=== PATIENT | male | born 1940 | race Caucasian/White ===

== ENCOUNTER 2017-10-16 23:04 | Outpatient (REF) | payer MEDICARE, MEDICAID, SELFPAY ==
[2017-10-16 23:25] LABS: Bilirubin Negative (Negative); Blood Small (Negative); Clarity Sl Cloudy; Glucose 500 mg/dL (Negative); Ketones Negative (Negative); Leukocyte Esterase Large (Negative); Nitrite Negative (Negative); Specific Gravity 1.015 (1.005-1.025); Urobilinogen 0.2 EU/dL (Up TO 0.2)
[2017-10-16 23:35] LABS: Epithelial Cells Negative HPF (Negative); RBC 20-50 (0-2); WBC >50 HPF (0-5)
[2017-10-16 23:36] LABS: Bacteria Many HPF (Negative); C & S Indicated? C&S Done As Ordered; Casts Negative LPF (Negative); Crystals Negative HPF (Negative); Mucus Negative (Negative)
== END 2017-10-16 23:05 ==
LOC: LBN 23:04
PROVIDERS: PCP Family Medicine; Visit Provider Family Medicine
DX: N39.0 Urinary tract infection, site not specified (principal)
CPT/HCPCS: 87077; 81003; 81015; 87086; 87186

== ENCOUNTER 2017-12-28 12:28 | Emergency (ER) | payer MEDICARE, MEDICAID, SELFPAY ==
[2017-12-28 12:28] VITALS: BP 110/62; PULSE 98; RESP 16; TEMP 36.9; O2SAT 98
--- NOTE | 2017-12-28 12:41 | W.ED.GENAD ---
Discharge Plan Disposition Patient Disposition: SNF (LEVEL 1) [facility] Condition: Stable Discharge Details Chief Complaint: Orthopedic Clinical Impression: Closed fracture of right hip, Lumbar contusion Primary Care Provider: Jaelyn Chavez ED Provider: Anant Desai Home Meds and New Rx's Prescriptions: Continue lorazepam 2 MG/ML solution 0.5 mg IVP Q2H PRN PRNRF: 0 morphine 10 MG/5 ML solution 10 mg PO Q3H PRN PRNRF: 0 MORPHine 4 MG/ML Vial 2 mg IVP Q2H PRN PRNRF: 0 lorazepam [Lorazepam Intensol] 2 MG/ML concentrate 0.5 mg PO Q4H PRNQty: 1 RF: 0 Discharge Instructions Instructions: Hip Fracture (ED) Discharge Data Discharge Physician: Anant Desai Medical Decision Making 77 yo male with hx of dementia and 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 He apparently had a fall after he tripped over his mary last night at rehab, no loc per report. He is at his baseline mental status amaya and is c/o of right hip and lower back pain. No stepoffs or signs of trauma, intact distal sensation and pulses. i am able to range his right hip though he has pain in the lower back and right hip with this. Will xray to eval for fx/dislocation lumbar spine films shows old compression fx's, nothing acute. Has a right nondisplaced hip fx. I spoke with pt's hospice provider Dr. clarke. The patient's pain when not moving is well controlled, he has fallen asleep without pain meds here and states his pain is fine without trying to stand. Given this and being on hospice Dr. clarke asked the pt to be transferred back to rehab and will be Differential Diagnosis contusion, sprain, strain, fx Imaging Data Radiologic Study: Attestation: I personally reviewed and interpreted this imaging study as follows: Imaging: X-Ray Radiologist's impression: nondisplaced right hip fx Radiologic Study #2: Attestation: I personally reviewed and interpreted this imaging study as follows: Imaging: X-Ray Radiologist's impression: old compresion fractures, no acute findings HPI General Mode of arrival: EMS. Date/Time Provider Initiated Documentation: 12/28/17 12:34. Limitations to Documentation: other (dementia). Information obtained by: patient. History of Present Illness 77 year old M presents to the emergency department with the chief complaint of right hip and lower back pain, described as moderate, with intensity rated at 5. Quality is described as sharp, and is localized to the right and lower extremity. Patient started experiencing this day(s) (1) and it has been constant. No relieving factors improve symptom(s), No exacerbating factors reported . Patient did receive the following treatments prior to arrival, none Related Data Home Medications Medication Instructions Recorded Confirmed MORPHine 2 mg IVP Q2H PRN PRN vial 09/27/17 lorazepam 0.5 mg IVP Q2H PRN PRN vial 09/27/17 lorazepam [Lorazepam Intensol] 0.5 mg PO Q4H PRN #1 vial 09/27/17 morphine 10 mg PO Q3H PRN PRN cup 09/27/17 Previous Rx's Medication Instructions Recorded MORPHine 2 mg IVP Q2H PRN PRN vial 09/27/17 lorazepam 0.5 mg IVP Q2H PRN PRN vial 09/27/17 lorazepam [Lorazepam Intensol] 0.5 mg PO Q4H PRN #1 vial 09/27/17 morphine 10 mg PO Q3H PRN PRN cup 09/27/17 Allergies Allergy/AdvReac Type Severity Reaction Status Date / Time amlodipine besylate Allergy Unknown Unverified 12/28/17 12:35 [From [facility]] General Stated Complaint: Orthopedic DAVID: 3 Review of Systems Review of Systems All systems reviewed & are unremarkable except as noted in HPI and below Constitutional Denies chills and Denies fever(s) Cardiovascular Denies chest pain and Denies dyspnea Respiratory Denies dyspnea Gastrointestinal Denies vomiting PFSH Family History Mother No problems noted. Father No problems noted. 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) Exam Const General: no acute distress Orientation: alert [facility] Head: normal to inspection Ears: external ears normal General nose exam: external nose normal Mouth: moist mucous membranes Eyes General: appearance normal, both eyes and all related structures Neck Neck: normal visual inspection Resp Effort & Inspection: normal respiratory effort and able to speak in complete sentences Cardio Rate: regular rate Skin General skin exam: no rashes or lesions noted Neuro General: alert and oriented Patient Orientation: Person Extrem General: normal to inspection Psych Mental Status: mental status grossly normal Course Vital Signs Temperature 36.9 C 12/28/17 12:28 Pulse 98 H 12/28/17 12:28 Respiratory Rate 16 12/28/17 12:28 Blood Pressure 110/62 12/28/17 12:28 Pulse Oximetry 98 12/28/17 12:28 Temperature 36.9 C 12/28/17 12:28 Temperature Source Skin 12/28/17 12:28 Pulse 98 H 12/28/17 12:28 Respiratory Rate 16 12/28/17 12:28 Blood Pressure 110/62 12/28/17 12:28 Blood Pressure Position Supine 12/28/17 12:28 Pulse Oximetry 98 12/28/17 12:28 Oxygen Delivery Method Room Air 12/28/17 12:28 Oxygen Flow Rate 0 12/28/17 12:28 Comment 12/28/17 12:28
--- NOTE | 2017-12-28 12:46 | ED.GENADUL_ITS ---
Discharge Plan Disposition Patient Disposition: SNF (LEVEL 1) [facility] Condition: Stable Discharge Details Chief Complaint: Orthopedic Clinical Impression: Closed fracture of right hip, Lumbar contusion Primary Care Provider: Jaelyn Chavez ED Provider: Anant Desai Home Meds and New Rx's Prescriptions: Continue lorazepam 2 MG/ML solution 0.5 mg IVP Q2H PRN PRNRF: 0 morphine 10 MG/5 ML solution 10 mg PO Q3H PRN PRNRF: 0 MORPHine 4 MG/ML Vial 2 mg IVP Q2H PRN PRNRF: 0 lorazepam [Lorazepam Intensol] 2 MG/ML concentrate 0.5 mg PO Q4H PRNQty: 1 RF: 0 Discharge Instructions Instructions: Hip Fracture (ED) Discharge Data Discharge Physician: Anant Desai Medical Decision Making 77 yo male with 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 He apparently had a fall after he tripped over his mary last night at rehab, no loc per report. He is at his baseline mental status amaya and is c/o of right hip and lower back pain. No stepoffs or signs of trauma, intact distal sensation and pulses. i am able to range his right hip though he has pain in the lower back and right hip with this. Will xray to eval for fx/dislocation lumbar spine films shows old compression fx's, nothing acute. Has a right nondisplaced hip fx. I spoke with pt's hospice provider Dr. clarke. The patient' s pain when not moving is well controlled, he has fallen asleep without pain meds here and states his pain is fine without trying to stand. Given this and being on hospice Dr. clarke asked the pt to be transferred back to rehab and will be Differential Diagnosis contusion, sprain, strain, fx Imaging Data Radiologic Study: Attestation: I personally reviewed and interpreted this imaging study as follows: Imaging: X-Ray Radiologist's impression: nondisplaced right hip fx Radiologic Study #2: Attestation: I personally reviewed and interpreted this imaging study as follows: Imaging: X-Ray Radiologist's impression: old compresion fractures, no acute findings HPI General Mode of arrival: EMS . Date/Time Provider Initiated Documentation: 12/28/17 12:34 . Limitations to Documentation: other (dementia) . Information obtained by: patient . History of Present Illness 77 year old M presents to the emergency department with the chief complaint of right hip and lower back pain, described as moderate, with intensity rated at 5. Quality is described as sharp, and is localized to the right and lower extremity. Patient started experiencing this day(s) (1) and it has been constant. No relieving factors improve symptom(s), No exacerbating factors reported . Patient did receive the following treatments prior to arrival, none Related Data Home Medications Medication Instructions Recorded Confirmed MORPHine 2 mg IVP Q2H PRN PRN vial 09/27/17 lorazepam 0.5 mg IVP Q2H PRN PRN vial 09/27/17 lorazepam [Lorazepam Intensol] 0.5 mg PO Q4H PRN #1 vial 09/27/17 morphine 10 mg PO Q3H PRN PRN cup 09/27/17 Previous Rx's Medication Instructions Recorded MORPHine 2 mg IVP Q2H PRN PRN vial 09/27/17 lorazepam 0.5 mg IVP Q2H PRN PRN vial 09/27/17 lorazepam [Lorazepam Intensol] 0.5 mg PO Q4H PRN #1 vial 09/27/17 morphine 10 mg PO Q3H PRN PRN cup 09/27/17 Allergies Allergy/AdvReac Type Severity Reaction Status Date / Time amlodipine besylate Allergy Unknown Unverified 12/28/17 12:35 [From [facility]] General Stated Complaint: Orthopedic DAVID: 3 Review of Systems Review of Systems All systems reviewed & are unremarkable except as noted in HPI and below Constitutional Denies chills and Denies fever(s) Cardiovascular Denies chest pain and Denies dyspnea Respiratory Denies dyspnea Gastrointestinal Denies vomiting PFSH Family History Mother No problems noted. Father No problems noted. 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 Head: normal to inspection Ears: external ears normal General nose exam: external nose normal Mouth: moist mucous membranes Eyes General: appearance normal, both eyes and all related structures Neck Neck: normal visual inspection Resp Effort & Inspection: normal respiratory effort and able to speak in complete sentences Cardio Rate: regular rate Skin General skin exam: no rashes or lesions noted Neuro General: alert and oriented Patient Orientation: Person Extrem General: normal to inspection Psych Mental Status: mental status grossly normal Course Vital Signs Temperature 36.9 C 12/28/17 12:28 Pulse 98 H 12/28/17 12:28 Respiratory Rate 16 12/28/17 12:28 Blood Pressure 110/62 12/28/17 12:28 Pulse Oximetry 98 12/28/17 12:28 Temperature 36.9 C 12/28/17 12:28 Temperature Source Skin 12/28/17 12:28 Pulse 98 H 12/28/17 12:28 Respiratory Rate 16 12/28/17 12:28 Blood Pressure 110/62 12/28/17 12:28 Blood Pressure Position Supine 12/28/17 12:28 Pulse Oximetry 98 12/28/17 12:28 Oxygen Delivery Method Room Air 12/28/17 12:28 Oxygen Flow Rate 0 12/28/17 12:28 Comment 12/28/17 12:28
--- NOTE | 2017-12-28 13:45 | DI.RAD_ITS ---
SYMPTOMS/DIAGNOSIS: PAIN S/P FALL RIGHT HIP AND PELVIS: Three views were obtained. There is a moderately displaced subcapital fracture of the right femur with some loss of length. No additional fractures seen. LUMBOSACRAL SPINE: Three views were obtained. There are old fractures of L2, L3 and L4. There is increased loss of height of L3 vertebral body in comparison with the previous examination of 09/06/17. No additional acute findings seen. CONCLUSION: Increased loss of height of L3 vertebra since 09/06/17.
--- NOTE | 2017-12-28 14:34 | DI.VRAD_ITS ---
EXAM: XR Right Hip With Pelvis When Performed, 2 or 3 Views CLINICAL HISTORY: 77 years old, male; Pain; Hip pain; Right hip; Patient HX: Right hip pain S/P fall. TECHNIQUE: Two or three views of the right hip, with pelvis when performed. COMPARISON: SC PELVIS AP 09/06/2017 6:37 AM FINDINGS: Relatively nondisplaced right subcapital hip fracture. Moderate vascular calcifications. No other evidence of acute fracture. IMPRESSION: Nondisplaced right subcapital hip fracture. Dictated and Authenticated by: Christopher Desai MD. Ordering:DARYL MONTERO MD
--- NOTE | 2017-12-28 14:36 | DI.VRAD_ITS ---
EXAM: XR Lumbar Spine, 2 or 3 Views CLINICAL HISTORY: 77 years old, male; Pain; Low back pain; Patient HX: Low back pain S/P fall. ; Additional info: Best images obtained due to patient condition, unable to roll on left side images taken x-table. TECHNIQUE: Frontal and lateral views of the lumbar spine. COMPARISON: CR LUMBAR SPINE AP, LAT 09/06/2017 6:37 AM FINDINGS: Diffuse degenerative disc and facet disease most pronounced at the L5-S1 level. Mild old-appearing compression fractures of L2, 3, and 4. No acute fracture. Atherosclerotic calcification of the abdominal aorta without evidence of aneurysmal dilatation. Prior abdominal and chest surgery. Prior coronary artery stenting. IMPRESSION: Diffuse degenerative disc and facet disease. Old mild compression fractures. No evidence of acute bony abnormality. Dictated and Authenticated by: Christopher Desai MD. Ordering:DARYL MONTERO MD
== END 2017-12-28 15:00 | disposition skilled nursing facility (03) ==
PROVIDERS: Emergency Provider Emergency Medicine; PCP Family Medicine
DX: S72.064A Nondisplaced articular fracture of head of right femur, initial encounter for closed fracture (principal); S30.0XXA Contusion of lower back and pelvis, initial encounter; W01.0XXA Fall on same level from slipping, tripping and stumbling without subsequent striking against object, initial encounter
CPT/HCPCS: 99284; 72100; 73502; 99282